=== PATIENT | female | born 1995 | race Caucasian/White ===

== ENCOUNTER 2017-03-27 22:51 | Emergency (ER) | payer OTHER ==
[~2017-03-27] VITALS: Ht 167.6 cm; Wt 57.7 kg
[2017-03-27 22:54] VITALS: BP 129/71; PULSE 136; RESP 16; TEMP 99.2; O2SAT 98
[2017-03-27 23:22] VITALS: BP 113/67; PULSE 117; RESP 20; O2SAT 100
[2017-03-27] MEDS ORDERED: BUPR150CR PO (23:28)
[2017-03-27] MEDS ORDERED: ONDANSETRON HCL 4 MG/2 ML VIAL IV PUSH ONE (23:45)
[2017-03-27] MEDS ORDERED: PANTOPRAZOLE SODIUM 40 MG VIAL IV PUSH ONE (23:45)
[2017-03-27] MEDS ORDERED: SODIUM CHLOR 0.9% 1000 ML INJ 1,000 ML IV ONE (23:45)
[2017-03-28 00:06] LABS: AUTOMATED NEUTROPHIL # 15.3 TH/MM3 (1.8-7.7); BASOPHIL % 0.2 % (0.0-2.0); BILIRUBIN, URINE NEG (NEG); BLOOD, URINE NEG (NEG); GLUCOSE,URINE NEG (NEG); HEMATOCRIT 39.4 % (35.0-46.0); HEMOGLOBIN 13.4 GM/DL (11.6-15.3); KETONE, URINE 80 mg/dL (NEG); LYMPH % 4.2 % (9.0-44.0); LYMPHOCYTE # 0.7 TH/MM3 (1.0-4.8); MEAN CELL VOLUME 85.8 FL (80.0-100.0); MEAN CORPUSCULAR HEMOGLOBIN 29.2 PG (27.0-34.0); MEAN PLATELET VOLUME 10.2 FL (7.0-11.0); MONO % 3.7 % (0.0-8.0); MONOCYTE # 0.6 TH/MM3 (0-0.9); MUCUS URINE MANY /lpf (OCC); NEUT % 91.9 % (16.0-70.0); NITRITE,URINE NEG (NEG); PH, URINE 5.5 (5.0-8.5); PLATELET COUNT 167 TH/MM3 (150-450); RED CELL DISTRIBUTION WIDTH 12.5 % (11.6-17.2); SQUAMOUS EPITHELIAL CELL URINE 1 /hpf (0-5); TRANSITIONAL EPI CELLS, URINE <1 /hpf; URINE COLOR YELLOW (YELLW/STRAW); URINE LEUKOCYTE ESTERASE NEG (NEG); WHITE BLOOD COUNT 16.6 TH/MM3 (4.0-11.0)
--- NOTE | 2017-03-28 00:08 | PD ---
HPI Chief Complaint: GI Complaint Time Seen by Provider: 22:59 Travel History International Travel<30 days: No Contact w/Intl Traveler<30days: No Traveled to known affect area: No History of Present Illness HPI Patient is a 22-year-old female who has 2 days of sore throat and then today began having nausea vomiting abdominal pain today about 4 hours ago.. Pt feels feverish and abdo epigastric and vomited , .no cough no wheeze no active vomit in the ER + nausea, took nothing for Sx and has not seen another MD for this episode PFSH Past Medical History Anxiety: Yes Depression: Yes Tetanus Vaccination: Unknown Influenza Vaccination: No ?: Not LMP: 6 months ago Past Surgical History Other Surgery: Yes (Eye Surgery at 5 yr old) Social History Alcohol Use: Yes (rarely) Tobacco Use: No Substance Use: No Allergies-Medications (Allergen,Severity, Reaction): Coded Allergies: pseudoephedrine (Verified Allergy, Severe, Hives, 03/27/17) varicella virus vaccine live (Verified Allergy, Severe, 03/27/17) Reported Meds & Prescriptions Reported Meds & Active Scripts Active Tramadol (Tramadol HCl) 50 Mg Tab 50 Mg PO Q4H PRN Ibuprofen 600 Mg Tab 600 Mg PO Q6H PRN Zofran (Ondansetron HCl) 4 Mg Tab 4 Mg PO Q6HR PRN Cipro (Ciprofloxacin HCl) 500 Mg Tab 500 Mg PO BID Reported Wellbutrin SR 12 HR (Bupropion HCl) 150 Mg Tab 75 Mg PO Q12HR Review of Systems Except as stated in HPI: all other systems reviewed are Neg Gastrointestinal: Positive: Nausea, Vomiting, Abdominal Pain Physical Exam Narrative GENERAL: non toxic appearing awake alert , SKIN: Warm and dry. HEAD: Atraumatic. Normocephalic. EYES: Pupils equal and round. No scleral icterus. No injection or drainage. ENT: No nasal bleeding or discharge. Mucous membranes pink and moist. NECK: Trachea midline. No JVD. CARDIOVASCULAR: Regular rate and rhythm. RESPIRATORY: No accessory muscle use. Clear to auscultation. Breath sounds equal bilaterally. GASTROINTESTINAL: Abdomen + tenderness local epigastric. +-tender, nondistended. Hepatic and splenic margins not palpable. MUSCULOSKELETAL: Extremities without clubbing, cyanosis, or edema. No obvious deformities. NEUROLOGICAL: Awake and alert. No obvious cranial nerve deficits. Motor grossly within normal limits. Five out of 5 muscle strength in the arms and legs. Normal speech. PSYCHIATRIC: Appropriate mood and affect; insight and judgment normal. Data Data Last Documented VS Vital Signs Date Time Temp Pulse Resp B/P (MAP) Pulse Ox O2 Delivery O2 Flow Rate FiO2 03/28/17 03:02 03/28/17 00:40 98 16 97 Room Air 03/27/17 22:54 99.2 Orders Orders Complete Blood Count With Diff (03/27/17 23:28) Comprehensive Metabolic Panel (03/27/17 23:28) Urinalysis - C+S If Indicated (03/27/17 23:28) Ed Urine Pregnancytest Poc (03/27/17 23:28) Iv Access Insert/Monitor (03/27/17 23:28) Oxygen Administration (03/27/17 23:28) Oximetry (03/27/17 23:28) Lipase (03/27/17 23:28) Influenzae A/B Antigen (03/27/17 23:33) Group A Rapid Strep Screen (03/27/17 23:33) Pantoprazole Inj (Protonix Inj) (03/27/17 23:45) Ondansetron Inj (Zofran Inj) (03/27/17 23:45) Sodium Chlor 0.9% 1000 Ml Inj (Ns 1000 M (03/27/17 23:45) Strep Culture (Group A) (03/27/17 23:50) Ketorolac Inj (Toradol Inj) (03/28/17 01:45) Ed Discharge Order (03/28/17 02:53) Labs Laboratory Tests Test 03/27/17 23:35 White Blood Count 16.6 TH/MM3 Red Blood Count 4.60 MIL/MM3 Hemoglobin 13.4 GM/DL Hematocrit 39.4 % Mean Corpuscular Volume 85.8 FL Mean Corpuscular Hemoglobin 29.2 PG Mean Corpuscular Hemoglobin Concent 34.0 % Red Cell Distribution Width 12.5 % Platelet Count 167 TH/MM3 Mean Platelet Volume 10.2 FL Neutrophils (%) (Auto) 91.9 % Lymphocytes (%) (Auto) 4.2 % Monocytes (%) (Auto) 3.7 % Eosinophils (%) (Auto) 0.0 % Basophils (%) (Auto) 0.2 % Neutrophils # (Auto) 15.3 TH/MM3 Lymphocytes # (Auto) 0.7 TH/MM3 Monocytes # (Auto) 0.6 TH/MM3 Eosinophils # (Auto) 0.0 TH/MM3 Basophils # (Auto) 0.0 TH/MM3 CBC Comment DIFF FINAL Differential Comment Urine Color YELLOW Urine Turbidity CLEAR Urine pH 5.5 Urine Specific [place] 1.029 Urine Protein TRACE mg/dL Urine Glucose (UA) NEG mg/dL Urine Ketones 80 mg/dL Urine Occult Blood NEG Urine Nitrite NEG Urine Bilirubin NEG Urine Urobilinogen LESS THAN 2.0 MG/DL Urine Leukocyte Esterase NEG Urine WBC LESS THAN 1 /hpf Urine Squamous Epithelial Cells 1 /hpf Urine Transitional Epithelial Cells <1 /hpf Urine Mucus MANY /lpf Microscopic Urinalysis Comment CULT NOT INDICATED Blood Urea Nitrogen 7 MG/DL Creatinine 0.77 MG/DL Random Glucose 91 MG/DL Total Protein 7.6 GM/DL Albumin 4.5 GM/DL Calcium Level 9.2 MG/DL Alkaline Phosphatase 86 U/L Aspartate Amino Transf (AST/SGOT) 14 U/L Alanine Aminotransferase (ALT/SGPT) 18 U/L Total Bilirubin 2.9 MG/DL Sodium Level 138 MEQ/L Potassium Level 3.7 MEQ/L Chloride Level 108 MEQ/L Carbon Dioxide Level 20.1 MEQ/L Anion Gap 10 MEQ/L Estimat Glomerular Filtration Rate 96 ML/MIN Lipase 119 U/L [facility] Medical Decision Making Medical Screen Exam Complete: Yes Emergency Medical Condition: Yes Differential Diagnosis Differential diagnosis is GERD versus gallbladder disease versus pancreatitis versus colitis versus gastritis viral Narrative Course patient has a mild elevated white count 16 and a total bili 2.9 that is elevated. I do a bedside point of care ultrasound of her gallbladder I see a normal common bile duct I do not see any stones , there is what appears to be a small polyp near the neck but not obstructing the outflow. There is no pericholecystic fluid . There is no indication that this is cholecystitis at this time. Diagnosis Primary Impression: Abdominal pain Qualified Codes: R10.84 - Generalized abdominal pain Additional Impression: Gastritis Qualified Codes: K29.70 - Gastritis, unspecified, without bleeding Scripts Tramadol (Tramadol) 50 Mg Tab 50 MG PO Q4H Y for PAIN, #6 TAB 0 Refills Prov: David Bustos MD 03/28/17 Ibuprofen (Ibuprofen) 600 Mg Tab 600 MG PO Q6H Y for PAIN, #10 TAB 0 Refills Prov: David Bustos MD 03/28/17 Ondansetron (Zofran) 4 Mg Tab 4 MG PO Q6HR Y for NAUSEA OR VOMITING, #10 TAB 0 Refills Prov: David Bustos MD 03/28/17 Ciprofloxacin (Cipro) 500 Mg Tab 500 MG PO BID for Infection, #14 TAB 0 Refills Prov: David Bustos MD 03/28/17 David Bustos MD Mar 28, 2017 00:08
[2017-03-28 00:36] LABS: ALBUMIN 4.5 GM/DL (3.4-5.0); ALT (GPT) 18 U/L (9-42); AST (GOT) 14 U/L (16-38); BICARBONATE 20.1 MEQ/L (21.0-32.0); BLOOD UREA NITROGEN 7 MG/DL (7-18); CALCIUM 9.2 MG/DL (8.5-10.1); CHLORIDE 108 MEQ/L (98-107); CREATININE 0.77 MG/DL (0.50-1.00); GLOMERULAR FILTRATION RATE 96 ML/MIN (>89); GLUCOSE,RANDOM 91 MG/DL (74-106); LIPASE 119 U/L (73-393); SODIUM (NA) 138 MEQ/L (136-145)
[2017-03-28 00:38] LABS: ALKALINE PHOSPHATASE 86 U/L (45-117); TOTAL BILIRUBIN ADULT 2.9 MG/DL (0.2-1.0); TOTAL PROTEIN 7.6 GM/DL (6.4-8.2)
[2017-03-28 00:40] VITALS: BP 110/56; PULSE 98; RESP 16; O2SAT 97
[2017-03-28] MEDS ORDERED: KETOROLAC TROMETHAMINE 30 MG/ML (IVP) VIAL IV PUSH ONE (01:45)
[2017-03-28] MEDS ORDERED: ZOFR4TAB PO (02:33)
[2017-03-28] MEDS ORDERED: CIPR-9 PO (02:33)
[2017-03-28] MEDS ORDERED: TRAM50TA PO (02:37)
[2017-03-28] MEDS ORDERED: IBUP-232 PO (02:37)
== END 2017-03-28 03:02 | disposition home or self-care (01) ==
LOC: NEPC 22:51
DX: R10.84 Generalized abdominal pain (principal); K29.70 Gastritis, unspecified, without bleeding; F32.9 Major depressive disorder, single episode, unspecified; F41.9 Anxiety disorder, unspecified
CPT/HCPCS: 80053; 81001; 83690; 84703; 85025; 87081; 87804; 87880; 96361; 96374; 96375; 99285; C9113; J1885; J2405; J7030

== ENCOUNTER 2017-07-26 12:45 | Emergency (ER) | payer OTHER ==
[~2017-07-26 12:45] MED LIST: BUPR150CR PO; CIPR-9 PO; IBUP-232 PO; TRAM50TA PO; ZOFR4TAB PO
== END 2017-07-26 14:23 | disposition left against medical advice (07) ==
LOC: NED 12:45
DX: R11.10 Vomiting, unspecified (principal); Z53.21 Procedure and treatment not carried out due to patient leaving prior to being seen by health care provider
CPT/HCPCS: 99281

== ENCOUNTER 2017-08-09 02:33 | Emergency (ER) | payer OTHER ==
[2017-08-09 02:38] VITALS: BP 127/83; PULSE 86; RESP 16; TEMP 97.8; O2SAT 97
[2017-08-09] MEDS ORDERED: BACT400T PO (03:01)
[2017-08-09] MEDS ORDERED: SODIUM CHLOR 0.9% 1000 ML INJ 1,000 ML IV ONE (03:15)
[2017-08-09] MEDS ORDERED: ONDANSETRON ODT 4 MG TAB PO ONE (03:15)
[2017-08-09 03:20] LABS: AUTOMATED NEUTROPHIL # 9.2 TH/MM3 (1.8-7.7); BASOPHIL # 0.1 TH/MM3 (0-0.2); BASOPHIL % 0.6 % (0.0-2.0); EOSINOPHIL # 0.1 TH/MM3 (0-0.4); EOSINOPHIL % 1.2 % (0.0-4.0); HEMATOCRIT 36.2 % (35.0-46.0); HEMOGLOBIN 12.4 GM/DL (11.6-15.3); LYMPH % 11.6 % (9.0-44.0); LYMPHOCYTE # 1.3 TH/MM3 (1.0-4.8); MEAN CORPUSCULAR HGB CONC 34.2 % (32.0-36.0); MEAN PLATELET VOLUME 9.3 FL (7.0-11.0); MONO % 5.5 % (0.0-8.0); MONOCYTE # 0.6 TH/MM3 (0-0.9); NEUT % 81.1 % (16.0-70.0); PLATELET COUNT 195 TH/MM3 (150-450); RED BLOOD COUNT 4.25 MIL/MM3 (4.00-5.30); RED CELL DISTRIBUTION WIDTH 12.7 % (11.6-17.2); WHITE BLOOD COUNT 11.3 TH/MM3 (4.0-11.0)
[2017-08-09 03:33] LABS: ALBUMIN 3.9 GM/DL (3.4-5.0); AST (GOT) 14 U/L (16-38); BLOOD UREA NITROGEN 7 MG/DL (7-18); CALCIUM 8.7 MG/DL (8.5-10.1); CHLORIDE 108 MEQ/L (98-107); CREATININE 0.68 MG/DL (0.50-1.00); GLOMERULAR FILTRATION RATE 110 ML/MIN (>89); GLUCOSE,RANDOM 98 MG/DL (74-106); SODIUM (NA) 140 MEQ/L (136-145)
[2017-08-09 03:36] LABS: ALKALINE PHOSPHATASE 79 U/L (45-117); ALT (GPT) 15 U/L (9-42); TOTAL PROTEIN 6.8 GM/DL (6.4-8.2)
[2017-08-09 04:02] LABS: AMORPHOUS SEDIMENT, URINE RARE; BILIRUBIN, URINE NEG (NEG); BLOOD, URINE NEG (NEG); GLUCOSE,URINE NEG (NEG); KETONE, URINE NEG (NEG); MUCUS URINE FEW /lpf (OCC); NITRITE,URINE NEG (NEG); PH, URINE 7.5 (5.0-8.5); SQUAMOUS EPITHELIAL CELL URINE 5 /hpf (0-5); URINE COLOR YELLOW (YELLW/STRAW); URINE LEUKOCYTE ESTERASE NEG (NEG)
[2017-08-09] MEDS ORDERED: KETOROLAC TROMETHAMINE 30 MG/ML (IVP) VIAL IV PUSH ONE (04:30)
[2017-08-09] MEDS ORDERED: PROCHLORPERAZINE INJ 10 MG/2 ML VIAL IV PUSH ONE (04:30)
[2017-08-09] MEDS ORDERED: diphenhydrAMINE HCL 50 MG/ML VIAL IV PUSH ONE (04:30)
[2017-08-09] MEDS ORDERED: CEPH-460 PO (05:42)
--- NOTE | 2017-08-09 05:42 | PD ---
HPI Chief Complaint: GI Complaint Time Seen by Provider: 02:51 Travel History International Travel<30 days: No Contact w/Intl Traveler<30days: No Traveled to known affect area: No History of Present Illness HPI Patient is a 22 year old female who comes in complaining of nausea and vomiting as well as a headache. She says the vomiting started after taking Bactrim tonight for a skin infection. She says that tonight was the first dose she had taken. She has taken Bactrim in the past with some nausea, but says it is never been this bad. She does complain of some abdominal pain, but says this is a chronic pain for her. She also complains of a frontal headache, which she says is similar to headaches she has had in the past. She denies fever chills. She denies any urinary symptoms. Severity is mild to moderate. PFSH Past Medical History Anxiety: Yes Depression: Yes ?: Not Past Surgical History Other Surgery: Yes (Eye Surgery at 5 yr old) Social History Alcohol Use: Yes (rarely) Tobacco Use: No Substance Use: No Allergies-Medications (Allergen,Severity, Reaction): Coded Allergies: pseudoephedrine (Verified Allergy, Severe, Hives, 08/09/17) varicella virus vaccine live (Verified Allergy, Severe, 08/09/17) Reported Meds & Prescriptions Reported Meds & Active Scripts Active Reported Bactrim (Sulfamethoxazole-Trimethoprim) 400-80 Mg Tab 1 Tab PO BID Review of Systems Except as stated in HPI: all other systems reviewed are Neg General / Constitutional: No: Fever, Chills HENT: Positive: Headaches Cardiovascular: No: Chest Pain or Discomfort Respiratory: No: Shortness of Breath Gastrointestinal: Positive: Nausea, Vomiting, Abdominal Pain Skin: No Rash, No Change in Pigmentation Neurologic: No: Weakness, Dizziness Physical Exam Narrative GENERAL: Awake and alert, no acute distress. SKIN: Focused skin assessment warm/dry. HEAD: Atraumatic. Normocephalic. EYES: Pupils equal and round. No scleral icterus. Rotary nystagmus of both eyes (patient is legally blind). ENT: Mucous membranes pink and moist. NECK: Trachea midline. No JVD. CARDIOVASCULAR: Regular rate and rhythm. No murmur appreciated. RESPIRATORY: No accessory muscle use. Clear to auscultation. Breath sounds equal bilaterally. GASTROINTESTINAL: Abdomen soft, nondistended. Tender palpation of the epigastric area. No rebound or guarding. MUSCULOSKELETAL: No obvious deformities. No clubbing. No cyanosis. No edema. NEUROLOGICAL: Awake and alert. No obvious cranial nerve deficits. Motor grossly within normal limits. Normal speech. PSYCHIATRIC: Appropriate mood and affect; insight and judgment normal. Data Data Last Documented VS Vital Signs Date Time Temp Pulse Resp B/P (MAP) Pulse Ox O2 Delivery O2 Flow Rate FiO2 08/09/17 02:38 97.8 86 16 127/83 (98) 97 Orders Orders Iv Access Insert/Monitor (08/09/17 03:07) Complete Blood Count With Diff (08/09/17 03:07) Comprehensive Metabolic Panel (08/09/17 03:07) Urinalysis - C+S If Indicated (08/09/17 03:07) Ed Urine Pregnancytest Poc (08/09/17 03:07) Ondansetron Odt (Zofran Odt) (08/09/17 03:15) Sodium Chlor 0.9% 1000 Ml Inj (Ns 1000 M (08/09/17 03:15) Ketorolac Inj (Toradol Inj) (08/09/17 04:30) Prochlorperazine Inj (Compazine Inj) (08/09/17 04:30) Diphenhydramine Inj (Benadryl Inj) (08/09/17 04:30) Labs Laboratory Tests Test 08/09/17 03:10 08/09/17 03:35 White Blood Count 11.3 TH/MM3 Red Blood Count 4.25 MIL/MM3 Hemoglobin 12.4 GM/DL Hematocrit 36.2 % Mean Corpuscular Volume 85.0 FL Mean Corpuscular Hemoglobin 29.0 PG Mean Corpuscular Hemoglobin Concent 34.2 % Red Cell Distribution Width 12.7 % Platelet Count 195 TH/MM3 Mean Platelet Volume 9.3 FL Neutrophils (%) (Auto) 81.1 % Lymphocytes (%) (Auto) 11.6 % Monocytes (%) (Auto) 5.5 % Eosinophils (%) (Auto) 1.2 % Basophils (%) (Auto) 0.6 % Neutrophils # (Auto) 9.2 TH/MM3 Lymphocytes # (Auto) 1.3 TH/MM3 Monocytes # (Auto) 0.6 TH/MM3 Eosinophils # (Auto) 0.1 TH/MM3 Basophils # (Auto) 0.1 TH/MM3 CBC Comment DIFF FINAL Differential Comment Blood Urea Nitrogen 7 MG/DL Creatinine 0.68 MG/DL Random Glucose 98 MG/DL Total Protein 6.8 GM/DL Albumin 3.9 GM/DL Calcium Level 8.7 MG/DL Alkaline Phosphatase 79 U/L Aspartate Amino Transf (AST/SGOT) 14 U/L Alanine Aminotransferase (ALT/SGPT) 15 U/L Total Bilirubin 1.0 MG/DL Sodium Level 140 MEQ/L Potassium Level 3.6 MEQ/L Chloride Level 108 MEQ/L Carbon Dioxide Level 25.0 MEQ/L Anion Gap 7 MEQ/L Estimat Glomerular Filtration Rate 110 ML/MIN Urine Color YELLOW Urine Turbidity HAZY Urine pH 7.5 Urine Specific [place] 1.024 Urine Protein TRACE mg/dL Urine Glucose (UA) NEG mg/dL Urine Ketones NEG mg/dL Urine Occult Blood NEG Urine Nitrite NEG Urine Bilirubin NEG Urine Urobilinogen 2.0 MG/DL Urine Leukocyte Esterase NEG Urine RBC 1 /hpf Urine WBC 2 /hpf Urine Squamous Epithelial Cells 5 /hpf Urine Amorphous Sediment RARE Urine Mucus FEW /lpf Microscopic Urinalysis Comment CULT NOT INDICATED MDM Medical Decision Making Medical Screen Exam Complete: Yes Emergency Medical Condition: Yes Medical Record Reviewed: Yes Differential Diagnosis Medication reaction versus gastroenteritis versus dehydration versus migraine headache Narrative Course Patient is a 22-year-old female comes in complaining of headache with nausea and vomiting. Exam she has mild epigastric tenderness. IV established, labs sent. Labs show no acute abnormalities. Given IV fluids, Zofran. She reports feeling a little bit better, but continues to have a headache and nausea. Given Compazine, Benadryl, Toradol. She reports feeling much better after this treatment. She is advised to drink plenty of fluids. Advised to eat a bland diet. Antibiotic switched from Bactrim to Keflex. Advised follow-up with her doctor. Advised to return to the ED as needed for any worsening symptoms. Diagnosis Primary Impression: Nausea & vomiting Qualified Codes: R11.2 - Nausea with vomiting, unspecified Additional Impression: Headache Qualified Codes: R51 - Headache Patient Instructions: Acute Headache (ED), Acute Nausea and Vomiting (ED), General Instructions Additional Instructions: Drink plenty of fluids. Take ibuprofen as needed for pain. Follow-up with your doctor. Stop the Bactrim and take Keflex instead. Return to the ED as needed for any worsening symptoms. Scripts Cephalexin (Keflex) 500 Mg Capsule 500 MG PO Q6H for Infection for 7 Days, #28 CAP 0 Refills Prov: Linda Carrasco MD 08/09/17 Disposition: 01 DISCHARGE HOME Condition: Stable Linda Carrasco MD August 09, 2017 05:42
== END 2017-08-09 06:05 | disposition home or self-care (01) ==
LOC: NEPE 02:33
DX: R11.2 Nausea with vomiting, unspecified (principal); R51 Headache; R10.13 Epigastric pain; R10.9 Unspecified abdominal pain; G89.29 Other chronic pain; F41.9 Anxiety disorder, unspecified; F32.9 Major depressive disorder, single episode, unspecified
CPT/HCPCS: 80053; 81001; 84703; 85025; 96361; 96374; 96375; 99284; J0780; J1200; J1885; J7030